=== PATIENT | female | born 1955 | race Caucasian/White ===

== ENCOUNTER → 2022-06-20 | Outpatient (CLI) | payer OTHER | END | disposition home or self-care (01) | LOC: OIH 10:59 | PROVIDERS: ATTEND Nurse Practitioner Family | DX: Z13.6 Encounter for screening for cardiovascular disorders (principal) | CPT/HCPCS: 75571 ==

== ENCOUNTER → 2024-04-26 | Outpatient (CLI) | payer BC ==
--- NOTE | 2024-04-26 10:08 | HMCIMG ---
US VENOUS DOPPLER UNILATERAL REASON: LEG PAIN COMPARISON: None Technique: Right venous doppler ultrasound was performed with spectral analysis and color flow imaging technique. FINDINGS: There is a normal appearance of the common femoral, deep femoral, the profunda femoris and popliteal veins. Proximal calf veins appear normal as well. There is normal response to compression and augmentation. There is no evidence of deep venous thrombosis. IMPRESSION: Normal right lower extremity venous Doppler ultrasound.
--- NOTE | 2024-04-26 10:10 | HMCIMG ---
US ARTERIAL UNILA LOW EXT DUPL REASON: LEG PAIN/NUMBNESS COMPARISON: None TECHNIQUE: Right leg return Doppler evaluation was performed with spectral analysis and color flow imaging. FINDINGS: There are normal triphasic waveforms throughout the right lower extremity. Flow velocities appear preserved as well. There is no evidence of significant arterial inflow occlusion. IMPRESSION: 1. Normal right lower extremity arterial Doppler vascular evaluation.
--- NOTE | 2024-04-26 11:16 | HMCIMG ---
US ABDOMINAL COMPLETE REASON: UNSEPCIFIED ABD PAIN COMPARISON: None FINDINGS: There is mild fatty infiltration of the liver. There are no focal mass lesions. The liver is not enlarged.The gallbladder is surgically absent. Kidneys appear normal in size and appearance. There is no evidence of mass, stone or hydronephrosis. Spleen and common duct appear normal. Aorta and inferior vena cava appear normal. The pancreas appears normal as well. Ultrasound images were also obtained in the right lower quadrant. The appendix was not separately identified and acute appendicitis cannot be excluded. IMPRESSION: 1. Mild diverticulosis, absent gallbladder, the abdomen sonogram is otherwise negative. 2. Right lower quadrant ultrasound was, appendix was not identified, the exam is inconclusive for presence or absence of appendicitis.
== END | disposition home or self-care (01) ==
LOC: RAH 07:50
PROVIDERS: ATTEND Nurse Practitioner Family
DX: K57.30 Diverticulosis of large intestine without perforation or abscess without bleeding (principal); K76.0 Fatty (change of) liver, not elsewhere classified; R10.9 Unspecified abdominal pain; R20.0 Anesthesia of skin; M79.661 Pain in right lower leg
CPT/HCPCS: 76700; 93926; 93971